=== PATIENT | male | born 1985 | race Caucasian/White ===

== ENCOUNTER 2021-11-16 08:02 | Outpatient (CLI) | payer OTHER, SELFPAY ==
--- NOTE | 2021-11-30 15:46 | WPDHOMESLEEP ---
Sleep Study - Home Unattended Date of Study: 11/16/21 Ordering Provider: Phyllis Joseph DO Interpreting Provider: Phyllis Joseph DO Home Sleep Study Type: Apnea Link Air Height: 1.68 m Weight: 81.647 kg Body Mass Index: 29.0 Neck Circumference (inches): 16.5 [place]: 13 Reason for Sleep Study Daytime hypersomnia Sleep History The patient is a 36-year-old male with anxiety, depression, irritable bowel syndrome, and hypogonadism that had a sleep study ordered for evaluation of sleep apnea. The patient states that he is only able to sleep for 3-4 hours and then is unable to fall back asleep for 3 hours. The patient denies awakening from sleep short of breath. He rarely awakens at night with heartburn, belching or cough. He constantly snores loud enough that others complain. He rarely has trouble sleeping when he has a cold. He denies waking up gasping for air throughout the night. He rarely has breathing problems at night observed by himself or others. He denies sweating excessively at night. He denies having heart palpitations or irregular heartbeats during the night. He occasionally falls asleep during the day. He rarely falls asleep while driving. He denies sleep paralysis and cataplexy. He frequently has trouble at school or work due to sleepiness. He rarely experiences vivid dreamlike scenes upon awakening or falling asleep. He denies having nightmares. He denies remembering his dreams. He denies having thoughts racing through his mind. He frequently feels sad or depressed. He frequently has anxiety. He denies having muscular tension. He constantly notices parts of his body jerk. He frequently kicks during the night. He constantly has crawling and aching feelings in his legs. He denies leg pain during the night. He denies grinding his teeth during sleep and awakening with morning jaw pain. He denies being bothered by pain during the day and being awakened by pain during the night. He denies waking up feeling stiff in the morning. He denies waking up with sore achy muscles. He denies waking up with pain in the neck, spine or other joints. He goes to bed at 12:45 a.m. on weekdays and between 9-10 p.m. on the weekends. He is able to fall asleep within 10 minutes. He wakes up once throughout the night. When he awakens, he will do stuff on his phone. He is unable to fall back asleep within 1-2 hours. He wakes up between 730-8 a.m. on both weekdays and weekends. He typically gets 5-6 hours of sleep per night. He will stay in bed for 10 minutes after waking up in the morning. He currently sleeps alone due to snoring. He currently lives with his girlfriend. He does not consume any caffeinated beverages within 2 hours of bedtime. He does not engage in physical exercise before bedtime. He will read and watch television before falling asleep. He does not feel refreshed after sleeping or taking a nap. He does not consume any caffeinated beverages throughout the day. He denies tobacco, alcohol and recreational drug use. [facility] Past Medical History Medical History Generalized anxiety disorder IBS (irritable bowel syndrome) Other and unspecified hyperlipidemia Other nonmedicinal substance allergy status Snoring Vasomotor rhinitis Surgical History Surgical History H/O: vasectomy Family History Family History Father Family history of mental disorder Depression Mother Family history of mental disorder Thyroid disorder Sibling Family history of mental disorder Asthma Grandparent Family history of mental disorder Family history of cardiovascular disease Hypertension Social History Social History Smoking status: Never smoker Alcohol intake: never Substance use: n
[2021-11-30 15:58] VITALS: BMI 29.0
== END 2021-11-17 11:44 | disposition home or self-care (01) ==
LOC: ANHCSM 08:04
PROVIDERS: PCP Family Medicine; Visit Provider Family Medicine
DX: G47.8 Other sleep disorders (principal)
CPT/HCPCS: 95806

== ENCOUNTER 2025-01-14 09:04 | Outpatient (CLI) | payer OTHER, SELFPAY ==
--- OUTSIDE RECORDS SUMMARY | 2025-01-14 09:39 | XMS_ITS | Clinical Summary ---
Author Organization [facility] Address [address] [place] [id number] Care Team Providers Care Business Account Leader Name Role Phone Adin Ramsey MD Primary Care Provider [phone] Allergies No known active allergies Medications atomoxetine HCl (ATOMOXETINE ORAL) Take by mouth 1 time daily as needed for Other (See Comment). Active vilazodone (Viibryd) 40 mg Tablet Take 40 mg by mouth daily. 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 Pulse 100 06/27/2023 8:12 AM 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 Temperature 36.8 C (98.2 F) 06/27/2023 8:12 AM 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 Respiratory Rate 16 06/27/2023 8:12 AM 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 Oxygen Saturation 98% 06/27/2023 8:12 AM 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 Inhaled Oxygen Concentration - - Weight 79.4 kg (175 lb) 06/27/2023 8:12 AM 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
[2025-01-14 14:34] LABS: Hematocrit 45.2 % (42.0-52.0); Hemoglobin 14.3 g/dL (14.0-18.0); Immature Granulocyte Percent A 0.3 % (0-0.5); Lymphocytes Absolute Auto 3.09 K/mm3 (0.9-3.2); Mean Corpuscular HGB Conc 31.6 g/dl (32-36); Mean Corpuscular Hemoglobin 28.8 pg (26-34); Mean Corpuscular Volume 90.9 fl (80-100); Nucleated Red Blood Cells Absolute Auto 0.000 K/mm3 (0.0-0.012); Nucleated Red Blood Cells Perc 0.0 % (0.0-0.2); Platelet Count Result 440 k/mm3 (150-375); Red Blood Count 4.97 M/mm3 (4.6-6.20); White Blood Count 8.0 K/mm3 (4.5-10.0)
[2025-01-14 15:19] LABS: Alanine Aminotransferase 48 U/L (6-50); Albumin Level 4.3 g/dL (3.5-5.1); Alkaline Phosphatase 66 U/L (38-126); Anion Gap 7 mmol/L (4-12); Aspartate Amino Transferase 78 U/L (17-59); Bilirubin,Total 0.5 mg/dL (0.2-1.3); Blood Urea Nitrogen 13 mg/dL (9-20); Calcium 9.5 mg/dL (8.4-10.2); Carbon Dioxide 31 mmol/L (22-30); Chloride 98 mmol/L (98-107); Cholesterol 239 mg/dL (0-200); Estimated Glomerular Filt Rate > 60; Glucose 108 mg/dL (65-110); HDL Direct 41 mg/dL; Potassium 4.5 mmol/L (3.4-5.0); Sodium 136 mmol/L (137-145); Total Protein 7.7 g/dL (6.3-8.2); Triglycerides 88 mg/dL (<150)
[2025-01-14 15:51] LABS: Thyroid Stimulating Hormone 0.928 uIU/mL (0.465-4.680)
== END 2025-01-14 09:05 | disposition home or self-care (01) ==
LOC: ANHGOSHLAB 09:06
PROVIDERS: PCP Nurse Practitioner Family; Visit Provider Nurse Practitioner Family
DX: F41.1 Generalized anxiety disorder (principal); E78.5 Hyperlipidemia, unspecified; E66.3 Overweight; G25.81 Restless legs syndrome
CPT/HCPCS: 36415; 80053; 80061; 84443; 85025